=== PATIENT | female | born 1985 | race Two or more races ===

== ENCOUNTER 2022-07-19 23:07 | Emergency (ER) | payer OTHER ==
[~2022-07-19] VITALS: Ht 162.6 cm; Wt 76.2 kg
[2022-07-20] MEDS ORDERED: ZOFRAN8 MG PO (04:52)
[2022-07-20] MEDS ORDERED: PEPCID40 MG PO (04:52)
[2022-07-20] MEDS ORDERED: LEVSIN/SL0.125 MG SL (04:52)
== END 2022-07-20 05:00 | disposition home or self-care (01) ==
LOC: ER 23:07
DX: R10.9 Unspecified abdominal pain (principal); R19.7 Diarrhea, unspecified; R11.0 Nausea; R42 Dizziness and giddiness; I10 Essential (primary) hypertension; R51.9 Headache, unspecified